=== PATIENT | female | born 1955 | race Caucasian/White ===

== ENCOUNTER → 2020-12-16 | Outpatient (CLI) | payer OTHER ==
[~2020-12-16] MED LIST: COREG25 MG PO; ENALAPRIL10 MG PO; FISH OIL1000 MG PO; FLEXERIL5 MG PO; HYDROCODONE BIT1 T11 PO; LISINOPRIL/HCTZ1 TAB PO; LOPID600 MG PO; METFORMIN ER500 MG PO; METFORMIN1000 MG PO; MOTRIN800 MG PO; OMEPRAZOLE40 MG PO; PREDNICOT20 MG PO; ZOLOFT50 MG PO; [UNRECOGNIZED DRUG - REMARK]
== END | disposition home or self-care (01) ==
LOC: RAD 08:37
PROVIDERS: ATTEND Nurse Practitioner Primary Care
DX: R05 Cough (principal); M51.34 Other intervertebral disc degeneration, thoracic region; M25.78 Osteophyte, vertebrae

== ENCOUNTER → 2021-04-20 | Outpatient (CLI) | payer OTHER ==
[~2021-04-20] MED LIST changes: +VIBRAMYCIN100 MG PO
== END | disposition home or self-care (01) ==
LOC: RAD 10:14
PROVIDERS: ATTEND Nurse Practitioner Primary Care
DX: M47.816 Spondylosis without myelopathy or radiculopathy, lumbar region (principal); M48.02 Spinal stenosis, cervical region

== ENCOUNTER 2021-04-29 09:17 | Emergency (ER) | payer OTHER ==
[~2021-04-29] VITALS: Ht 165.1 cm; Wt 96.2 kg
[~2021-04-29 09:17] MED LIST changes: -VIBRAMYCIN100 MG PO
[2021-04-29 11:20] VITALS: BP 162/104
[2021-04-29 11:56] LABS: BASO # 0.1 10*3/uL (0.0-0.1); BASO % 0.8 % (0.0-1.0); EOS # 0.1 10*3/uL (0.0-0.4); EOS % 1.2 % (1.0-4.0); HEMATOCRIT 41.9 % (37.0-47.0); LYMPH # 2.1 10*3/uL (1.3-4.4); LYMPH % 20.1 % (27.0-41.0); MEAN CELL VOLUME 90.7 fl (81.0-99.0); MEAN CORPUSCULAR HGB 29.9 pg (27.0-31.0); MEAN CORPUSCULAR HGB CONC 32.9 g/dl (33.0-37.0); MEAN PLATELET VOLUME 11.5 fl (9.6-12.3); MONO # 0.7 10*3/uL (0.1-1.0); MONO % 6.6 % (3.0-9.0); NEUT # 7.5 10*3/uL (2.3-7.9); NEUT % 70.9 % (47.0-73.0); PLATELET COUNT AUTOMATED 196 10*3/uL (130-400); RED BLOOD COUNT 4.62 10*6/uL (4.10-5.10); RED CELL DISTRI WIDTH 12.6 % (0-14.5); WHITE BLOOD COUNT 10.6 10*3/uL (4.8-10.8)
[2021-04-29 12:13] LABS: ALBUMIN 4.3 gm/dl (3.1-4.5); BUN 12 mg/dl (7-24); CHLORIDE 102 mmol/L (98-107); CREATININE 0.76 mg/dL (0.55-1.02); POTASSIUM 3.6 mmol/L (3.5-5.1); SGOT/AST 19 IU/L (3-35); SGPT/ALT 33 U/L (12-78); SODIUM 139 mmol/L (136-145)
[2021-04-29 12:16] LABS: ALKALINE PHOSPHATASE 104 U/L (45-117)
[2021-04-29 12:18] LABS: TROPONIN I < 0.015 ng/ml (<0.045)
[2021-04-29 13:32] LABS: BILIRUBIN Negative (Negative); BLOOD Negative (Negative); CLARITY Clear (Clear); COLOR Yellow (Yellow); GLUCOSE Negative (Negative); KETONE Negative (Negative); LEUKO ESTERASE Negative (Negative); NITRITE Negative (Negative); PH 6.5 (4.5-8.0); UROBILINOGEN 0.2 E.U./dl (0.0-1.0)
[2021-04-29 13:37] LABS: BACTERIA 1+
[2021-04-29] MEDS ORDERED: VIBRAMYCIN100 MG PO (14:50)
== END 2021-04-29 15:37 | disposition home or self-care (01) ==
LOC: ED 09:17
PROVIDERS: Physician Assistant
DX: R03.0 Elevated blood-pressure reading, without diagnosis of hypertension (principal); Z98.890 Other specified postprocedural states; Z90.89 Acquired absence of other organs; Z79.899 Other long term (current) drug therapy

== ENCOUNTER → 2021-11-15 | Outpatient (CLI) | payer OTHER ==
[~2021-11-15] MED LIST changes: +VIBRAMYCIN100 MG PO
== END | disposition home or self-care (01) ==
LOC: MAMMO 12:13
PROVIDERS: ATTEND Nurse Practitioner Primary Care
DX: Z12.31 Encounter for screening mammogram for malignant neoplasm of breast (principal); N64.89 Other specified disorders of breast

== ENCOUNTER → 2022-02-18 | Outpatient (CLI) | payer OTHER | END | disposition home or self-care (01) | LOC: RAD 08:00 | PROVIDERS: ATTEND Specialist | DX: R05.3 Chronic cough (principal); M25.78 Osteophyte, vertebrae; M48.02 Spinal stenosis, cervical region ==

== ENCOUNTER → 2022-03-11 | Outpatient (CLI) | payer OTHER | END | disposition home or self-care (01) | LOC: MRI 00:26 | PROVIDERS: ATTEND Specialist | DX: R42 Dizziness and giddiness (principal) ==

== ENCOUNTER → 2022-04-05 | Outpatient (CLI) | payer OTHER | END | disposition home or self-care (01) | LOC: CARD 01:54 | PROVIDERS: ATTEND Internal Medicine Cardiovascular Disease | DX: I10 Essential (primary) hypertension (principal); R01.1 Cardiac murmur, unspecified; Z68.33 Body mass index [BMI] 33.0-33.9, adult ==

== ENCOUNTER → 2022-06-14 | Day surgery (SDC) | payer OTHER ==
[~2022-06-14] VITALS: Ht 167.6 cm; Wt 90.7 kg
[~2022-06-14] MED LIST changes: +HYZAAR 100-12.1 EACH PO; +METOPROLOL SUCC50 M1 PO; +VASCEPA1 G1 PO
[2022-06-14 08:27] VITALS: BP 180/89
[2022-06-14 09:03] VITALS: BP 121/68
[2022-06-14 09:18] VITALS: BP 128/79
[2022-06-14 09:33] VITALS: BP 132/86
[2022-06-14 12:44] VITALS: BP 121/68
== END | disposition home or self-care (01) ==
LOC: SDC 06-09 09:30
PROVIDERS: ATTEND Specialist
DX: H83.02 Labyrinthitis, left ear (principal); H81.312 Aural vertigo, left ear; I10 Essential (primary) hypertension; E11.9 Type 2 diabetes mellitus without complications; F32.9 Major depressive disorder, single episode, unspecified; K21.9 Gastro-esophageal reflux disease without esophagitis; E78.00 Pure hypercholesterolemia, unspecified; Z98.890 Other specified postprocedural states

== ENCOUNTER → 2023-01-27 | Outpatient (CLI) | payer MEDICARE | END | disposition home or self-care (01) | LOC: ORTHO 00:56 | PROVIDERS: ATTEND Orthopaedic Surgery | DX: M17.11 Unilateral primary osteoarthritis, right knee (principal) ==

== ENCOUNTER → 2023-04-20 | Outpatient (CLI) | payer MEDICARE | END | disposition home or self-care (01) | LOC: MAMMO 01:00 | PROVIDERS: ATTEND Physician Assistant | DX: Z12.31 Encounter for screening mammogram for malignant neoplasm of breast (principal) ==

== ENCOUNTER → 2024-04-22 | Outpatient (CLI) | payer MEDICARE | END | disposition home or self-care (01) | LOC: MAMMO 10:30 | PROVIDERS: ATTEND Physician Assistant | DX: Z12.31 Encounter for screening mammogram for malignant neoplasm of breast (principal) ==

== ENCOUNTER 2025-04-08 08:52 | Emergency (ER) | payer MEDICARE ==
[~2025-04-08] VITALS: Ht 167.6 cm; Wt 74.8 kg
[~2025-04-08 08:52] MED LIST changes: +MOUNJARO2.5 MG/0.1 SQ; +PRADAXA150 MG PO; +[UNRECOGNIZED DRUG - OTHER] SQ
[2025-04-08 09:31] LABS: BASO # 0.1 10*3/uL (0.0-0.1); BASO % 0.8 % (0.0-1.0); EOS # 0.0 10*3/uL (0.0-0.4); EOS % 0.1 % (1.0-4.0); MEAN CELL VOLUME 88.1 fl (81.0-99.0); MEAN CORPUSCULAR HGB 28.8 pg (27.0-31.0); MEAN PLATELET VOLUME 11.8 fl (9.6-12.3); MONO # 0.4 10*3/uL (0.1-1.0); MONO % 4.6 % (3.0-9.0); NEUT # 6.2 10*3/uL (2.3-7.9); NEUT % 74.1 % (47.0-73.0); NUCLEATED RED BLOOD CELL 0.0 % (0.0-0.0); NUCLEATED RED BLOOD CELL 0.0 10*3/uL (0.0-0.0); PLATELET COUNT AUTOMATED 188 10*3/uL (130-400); RED CELL DISTRI WIDTH 14.3 % (0-14.5)
[2025-04-08 09:53] LABS: BUN 25.0 mg/dl (9-23); SGPT/ALT 17.0 U/L (5-49)
[2025-04-08 11:06] VITALS: BP 129/90
[2025-04-08] MEDS ORDERED: METOPROLOL TART50 M1 PO (11:13)
== END 2025-04-08 11:42 | disposition home or self-care (01) ==
LOC: ED 08:52
PROVIDERS: Emergency Medicine
DX: I48.91 Unspecified atrial fibrillation (principal); R06.02 Shortness of breath; I10 Essential (primary) hypertension; E11.9 Type 2 diabetes mellitus without complications; F32.A Depression, unspecified; K21.9 Gastro-esophageal reflux disease without esophagitis; Z98.890 Other specified postprocedural states; Z90.89 Acquired absence of other organs; Z88.1 Allergy status to other antibiotic agents

== ENCOUNTER 2025-04-19 11:33 | Inpatient (IN) | payer MEDICARE ==
[2025-04-19] VITALS (11 sets, daily range): BP systolic 119–145; BP diastolic 81–107
[~2025-04-19] VITALS: Ht 167.6 cm; Wt 73.1 kg
[~2025-04-19 11:33] MED LIST changes: +METOPROLOL TART50 M1 PO
[2025-04-19 12:03] LABS: BASO # 0.1 10*3/uL (0.0-0.1); BASO % 1.1 % (0.0-1.0); EOS # 0.0 10*3/uL (0.0-0.4); EOS % 0.4 % (1.0-4.0); MEAN CELL VOLUME 88.9 fl (81.0-99.0); MEAN CORPUSCULAR HGB 29.1 pg (27.0-31.0); MEAN PLATELET VOLUME 12.3 fl (9.6-12.3); MONO # 0.6 10*3/uL (0.1-1.0); MONO % 5.8 % (3.0-9.0); NEUT # 6.7 10*3/uL (2.3-7.9); NEUT % 62.3 % (47.0-73.0); NUCLEATED RED BLOOD CELL 0.0 % (0.0-0.0); NUCLEATED RED BLOOD CELL 0.0 10*3/uL (0.0-0.0); PLATELET COUNT AUTOMATED 209 10*3/uL (130-400); RED CELL DISTRI WIDTH 15.0 % (0-14.5)
[2025-04-19 12:24] LABS: BUN 20.0 mg/dl (9-23)
[2025-04-19] MEDS ORDERED: FUROSEMIDE 40 MG/4 ML VIAL IV ONE (12:40)
[2025-04-19] MEDS ORDERED: ETOMIDATE 20 MG/10 ML VIAL IV ONE (13:10)
[2025-04-19] MEDS ORDERED: LASIX20 MG PO (14:27)
[2025-04-19] MEDS ORDERED: BISACODYL 10 MG SUPP R PRN (15:40)
[2025-04-19] MEDS ORDERED: ACETAMINOPHEN 325 MG TAB PO PRN (15:40)
[2025-04-19] MEDS ORDERED: Ondansetron Hydrochloride 4 MG/2 ML VIAL IV PRN (15:40)
[2025-04-19] MEDS ORDERED: Acetaminophen/Hydrocodone 5 MG/325 MG TABLET PO PRN (15:40)
[2025-04-19] MEDS ORDERED: ACETAMINOPHEN 650 MG SUPP R PRN (15:40)
[2025-04-19] MEDS ORDERED: BISACODYL 5 MG TAB PO PRN (15:40)
[2025-04-19] MEDS ORDERED: DILTIAZEM HCL IN NACL,ISO-OSM 5 ML IV ONE (15:45)
[2025-04-19] MEDS ORDERED: TOPROL XL50 M1 PO (16:32)
[2025-04-19] MEDS ORDERED: TOPROL XL100 MG PO (16:33)
[2025-04-19] MEDS ORDERED: ELIQUIS5 M1 PO (16:34)
[2025-04-19] MEDS ORDERED: DILTIAZEM HCL IV SCH (17:00)
[2025-04-19] MEDS ORDERED: SODIUM CHLORIDE IV SCH (17:00)
[2025-04-19] MEDS ORDERED: [UNRECOGNIZED DRUG - OTHER] IV SCH (17:00)
[2025-04-19] MEDS ORDERED: APIXABAN 5 MG TAB PO SCH (22:00)
[2025-04-19] MEDS ORDERED: TEMAZEPAM 15 MG CAP PO PRN (22:00)
[2025-04-20] VITALS (11 sets, daily range): BP systolic 100–126; BP diastolic 64–94
[2025-04-20] MEDS ORDERED: METOPROLOL SUCCINATE XR 50 MG TAB PO ONE ×2 (04:10→10:00)
[2025-04-20] MEDS ORDERED: OMEPRAZOLE 20 MG CAP PO SCH (06:00)
[2025-04-20 06:14] LABS: BASO # 0.1 10*3/uL (0.0-0.1); BASO % 1.4 % (0.0-1.0); EOS # 0.1 10*3/uL (0.0-0.4); EOS % 2.0 % (1.0-4.0); MEAN CELL VOLUME 88.7 fl (81.0-99.0); MEAN CORPUSCULAR HGB 29.2 pg (27.0-31.0); MEAN PLATELET VOLUME 12.6 fl (9.6-12.3); MONO # 0.6 10*3/uL (0.1-1.0); MONO % 8.0 % (3.0-9.0); NEUT # 3.2 10*3/uL (2.3-7.9); NEUT % 44.5 % (47.0-73.0); NUCLEATED RED BLOOD CELL 0.0 % (0.0-0.0); NUCLEATED RED BLOOD CELL 0.0 10*3/uL (0.0-0.0); PLATELET COUNT AUTOMATED 167 10*3/uL (130-400); RED CELL DISTRI WIDTH 14.6 % (0-14.5)
[2025-04-20 06:17] LABS: BUN 21.0 mg/dl (9-23); FREE T4 1.71 ng/dl (0.89-1.76)
[2025-04-20] MEDS ORDERED: POTASSIUM CHLORIDE 20 MEQ TAB PO ONE ×2 (08:45→10:15)
[2025-04-20] MEDS ORDERED: FUROSEMIDE 20 MG/2 ML VIAL IV SCH (10:00)
[2025-04-20] MEDS ORDERED: LOSARTAN PO SCH (10:00)
[2025-04-20] MEDS ORDERED: HCTZ PO SCH (10:00)
[2025-04-20] MEDS ORDERED: MAGNESIUM SULFATE 50 ML IV ONE (10:15)
[2025-04-20] MEDS ORDERED: METOPROLOL SUCCINATE XR 100 MG TAB PO SCH (18:00)
[2025-04-21] VITALS (8 sets, daily range): BP systolic 113–130; BP diastolic 76–98
[2025-04-21 06:23] LABS: BUN 23.0 mg/dl (9-23)
[2025-04-21 06:33] LABS: BASO # 0.1 10*3/uL (0.0-0.1); BASO % 1.2 % (0.0-1.0); EOS # 0.2 10*3/uL (0.0-0.4); EOS % 2.6 % (1.0-4.0); MEAN CELL VOLUME 88.9 fl (81.0-99.0); MEAN CORPUSCULAR HGB 28.7 pg (27.0-31.0); MEAN PLATELET VOLUME 12.9 fl (9.6-12.3); MONO # 0.7 10*3/uL (0.1-1.0); MONO % 8.5 % (3.0-9.0); NEUT # 3.9 10*3/uL (2.3-7.9); NEUT % 50.8 % (47.0-73.0); NUCLEATED RED BLOOD CELL 0.0 % (0.0-0.0); NUCLEATED RED BLOOD CELL 0.0 10*3/uL (0.0-0.0); PLATELET COUNT AUTOMATED 165 10*3/uL (130-400); RED CELL DISTRI WIDTH 14.9 % (0-14.5)
[2025-04-21] MEDS ORDERED: FUROSEMIDE 20 MG TAB PO SCH (10:00)
[2025-04-21] MEDS ORDERED: FUROSEMIDE 40 MG TAB PO SCH (10:05)
[2025-04-21] MEDS ORDERED: POTASSIUM CHLORIDE 20 MEQ TAB PO ONE (13:25)
[2025-04-22] VITALS: BP 111/74
[2025-04-22 06:44] LABS: BUN 22 mg/dl (9-23)
[2025-04-22 07:17] VITALS: BP 110/64
[2025-04-22] MEDS ORDERED: DIGOXIN 500 MCG/2 ML AMP IV ONE ×2 (07:55→08:15)
[2025-04-22] MEDS ORDERED: LORazepam 1 MG TAB PO ONE (08:05)
[2025-04-22] MEDS ORDERED: Technetium Tc 99M Tetrofosmi 0.23 MG KIT IJ SCH (08:35)
[2025-04-22 09:20] VITALS: BP 129/87
[2025-04-22 12:00] VITALS: BP 108/86
[2025-04-22] MEDS ORDERED: DIGOXIN 500 MCG/2 ML AMP IV SCH ×4 (14:00→20:00)
[2025-04-22] MEDS ORDERED: DIGOXIN 125 MCG TAB PO SCH (14:00)
[2025-04-22 16:00] VITALS: BP 120/89
[2025-04-22 20:00] VITALS: BP 152/98
[2025-04-23] VITALS: BP 135/96
[2025-04-23 06:28] LABS: BASO # 0.1 10*3/uL (0.0-0.1); BASO % 1.4 % (0.0-1.0); EOS # 0.2 10*3/uL (0.0-0.4); EOS % 2.7 % (1.0-4.0); MEAN CELL VOLUME 89.1 fl (81.0-99.0); MEAN CORPUSCULAR HGB 29.1 pg (27.0-31.0); MEAN PLATELET VOLUME 12.1 fl (9.6-12.3); MONO # 0.8 10*3/uL (0.1-1.0); MONO % 9.3 % (3.0-9.0); NEUT # 4.4 10*3/uL (2.3-7.9); NEUT % 54.6 % (47.0-73.0); NUCLEATED RED BLOOD CELL 0.0 % (0.0-0.0); NUCLEATED RED BLOOD CELL 0.0 10*3/uL (0.0-0.0); PLATELET COUNT AUTOMATED 176 10*3/uL (130-400); RED CELL DISTRI WIDTH 14.3 % (0-14.5)
[2025-04-23] MEDS ORDERED: Regadenoson 0.4 MG/5 ML SYR IV ONE (06:37)
[2025-04-23 07:07] LABS: BUN 18.0 mg/dl (9-23)
[2025-04-23 08:00] VITALS: BP 119/96
[2025-04-23 12:00] VITALS: BP 120/89
[2025-04-23] MEDS ORDERED: DIGOXIN 125 MCG TAB PO SCH (14:00)
[2025-04-23 16:00] VITALS: BP 108/70
[2025-04-23] MEDS ORDERED: KLOR-CON M2020 ME1 PO (16:57)
[2025-04-23] MEDS ORDERED: DIGOXIN PO (16:57)
[2025-04-23] MEDS ORDERED: LASIX20 MG PO (16:57)
[2025-04-23] MEDS ORDERED: METOPROLOL SUC100 M1 PO (16:57)
== END 2025-04-23 17:39 | disposition home or self-care (01) | DRG 291 ==
LOC: ED 11:33 → EDHOLD 15:00 → 4E 15:00
PROVIDERS: Emergency Medicine; Internal Medicine; Internal Medicine Cardiovascular Disease; Student in an Organized Health Care Education/Training Program; ADMIT Internal Medicine; ATTEND Internal Medicine
PROC: 5A2204Z Restoration of Cardiac Rhythm, Single (ICD-10-PCS; principal; 2025-04-19)
DX: I13.0 Hypertensive heart and chronic kidney disease with heart failure and stage 1 through stage 4 chronic kidney disease, or unspecified chronic kidney disease (principal); I50.33 Acute on chronic diastolic (congestive) heart failure; N17.9 Acute kidney failure, unspecified; I48.91 Unspecified atrial fibrillation; K21.9 Gastro-esophageal reflux disease without esophagitis; I48.0 Paroxysmal atrial fibrillation; E11.22 Type 2 diabetes mellitus with diabetic chronic kidney disease; E11.65 Type 2 diabetes mellitus with hyperglycemia; E78.1 Pure hyperglyceridemia; E87.6 Hypokalemia; N18.31 Chronic kidney disease, stage 3a; Z88.8 Allergy status to other drugs, medicaments and biological substances; Z98.51 Tubal ligation status; Z82.49 Family history of ischemic heart disease and other diseases of the circulatory system

== ENCOUNTER → 2025-04-28 | Outpatient (CLI) | payer MEDICARE ==
[~2025-04-28] MED LIST changes: +DIGOXIN PO; +ELIQUIS5 M1 PO; +KLOR-CON M2020 ME1 PO; +LASIX20 MG PO; +METOPROLOL SUC100 M1 PO; +TOPROL XL100 MG PO; +TOPROL XL50 M1 PO
[2025-04-28 10:29] LABS: BASO # 0.1 10*3/uL (0.0-0.1); BASO % 1.3 % (0.0-1.0); EOS # 0.2 10*3/uL (0.0-0.4); EOS % 2.8 % (1.0-4.0); MEAN CELL VOLUME 91.4 fl (81.0-99.0); MEAN CORPUSCULAR HGB 28.6 pg (27.0-31.0); MEAN PLATELET VOLUME 11.6 fl (9.6-12.3); MONO # 0.6 10*3/uL (0.1-1.0); MONO % 7.9 % (3.0-9.0); NEUT # 3.9 10*3/uL (2.3-7.9); NEUT % 50.0 % (47.0-73.0); NUCLEATED RED BLOOD CELL 0.0 % (0.0-0.0); NUCLEATED RED BLOOD CELL 0.0 10*3/uL (0.0-0.0); PLATELET COUNT AUTOMATED 236 10*3/uL (130-400); RED CELL DISTRI WIDTH 14.0 % (0-14.5)
[2025-04-28 10:54] LABS: BUN 20.0 mg/dl (9-23); SGPT/ALT 18.0 U/L (5-49)
== END | disposition home or self-care (01) ==
LOC: LAB 09:41
PROVIDERS: ATTEND Internal Medicine
DX: N17.9 Acute kidney failure, unspecified (principal); I48.91 Unspecified atrial fibrillation; E87.6 Hypokalemia

== ENCOUNTER → 2025-06-09 | Outpatient (CLI) | payer MEDICARE | END | disposition home or self-care (01) | LOC: NM 07:00 | PROVIDERS: ATTEND Physician Assistant | DX: E05.20 Thyrotoxicosis with toxic multinodular goiter without thyrotoxic crisis or storm (principal) ==

== ENCOUNTER → 2025-06-23 | Outpatient (CLI) | payer MEDICARE | END | disposition home or self-care (01) | LOC: MAMMO 01:16 | PROVIDERS: ATTEND Physician Assistant | DX: Z12.31 Encounter for screening mammogram for malignant neoplasm of breast (principal); R92.323 Mammographic fibroglandular density, bilateral breasts; R92.1 Mammographic calcification found on diagnostic imaging of breast ==